=== PATIENT | female | born 1990 | race Caucasian/White ===

== ENCOUNTER 2017-06-10 12:05 | Emergency (ER) | payer BC ==
[2017-06-10 12:26] VITALS: BP 138/89; PULSE 86; TEMP 97.8; BMI 23.6
--- NOTE | 2017-06-10 12:44 | PDOC ---
History of Present Illness - General Chief Complaint: Injury Stated Complaint: RIGHT ANKLE PAIN S/P INJURY Time Seen by Provider: 06/10/17 12:26 - History of Present Illness Initial Comments: 06/10/17 12:57 26yo F hx Jed syndome p/w R ankle pain s/p rolling it inward 10 days ago over a branch. Initially ankle was swollen, mom reports giving patient ibuprofen and applying ice. Patient reports that the pain has improved but she still feels some pain when she walks. She reports she's been walking normally with no issues. Denies other injuries. Is in her usual state of good health, denies fevers, chills, chest pain, shortness of breath, abdominal pain, headaches, weakness. Past History - Past Medical History Allergies/Adverse Reactions: Allergies Allergy/AdvReac Type Severity Reaction Status Date / Time No Known Allergies Allergy Verified 10/23/12 13:14 Home Medications: Ambulatory Orders Estradiol 1 each TD ASDIR 05/28/16 Other medical history: [place] Syndrome: mild developmental disability - Psycho/Social/Smoking Cessation Hx Anxiety: No Suicidal Ideation: No Smoking Status: No Smoking History: Never smoked Number of Cigarettes Smoked Daily: 0 Hx Alcohol Use: No Drug/Substance Use Hx: No Substance Use Type: None Review of Systems - Review of Systems Comments:: 06/10/17 13:18 GENERAL/CONSTITUTIONAL: No fever or chills. No weakness. HEAD, EYES, EARS, NOSE AND THROAT: No change in vision. No ear pain or discharge. No sore throat. CARDIOVASCULAR: No chest pain or shortness of breath. RESPIRATORY: No cough, wheezing, or hemoptysis. GASTROINTESTINAL: No nausea, vomiting, diarrhea or constipation. GENITOURINARY: No dysuria, frequency, or change in urination. MUSCULOSKELETAL: +R ankle pain. No neck or back pain. SKIN: No rash NEUROLOGIC: No headache, vertigo, loss of consciousness, or change in strength/ sensation. ENDOCRINE: No increased thirst. No abnormal weight change. HEMATOLOGIC/LYMPHATIC: No anemia, easy bleeding, or history of blood clots. ALLERGIC/IMMUNOLOGIC: No hives or skin allergy. *Physical Exam - Vital Signs Last Vital Signs Temp Pulse Resp BP Pulse Ox 97.8 F 86 15 138/89 98 06/10/17 12:06 06/10/17 12:06 06/10/17 12:06 06/10/17 12:06 06/10/17 12:06 - Physical Exam Comments: 06/10/17 13:19 GENERAL: Awake, alert, and fully oriented, in no acute distress HEAD: No signs of trauma EYES: PERRLA, EOMI, sclera anicteric, conjunctiva clear ENT: Auricles normal inspection, hearing grossly normal, nares patent, oropharynx clear without exudates. Moist mucosa NECK: Normal ROM, supple, no lymphadenopathy, JVD, or masses LUNGS: Breath sounds equal, clear to auscultation bilaterally. No wheezes, and no crackles HEART: Regular rate and rhythm, normal S1 and S2, no murmurs, rubs or gallops ABDOMEN: Soft, nontender, normoactive bowel sounds. No guarding, no rebound. No masses EXTREMITIES: Normal range of motion, no edema. No pain with eversion or inversion. + mild ttp inferior to the medial malleolus. 2+ DP and TP pulses. No erythema. Full strength dorsi and plantar flexion. Normal sensation in foot. Walking in ED without antalgic gait. No clubbing or cyanosis. NEUROLOGICAL: Normal speech, cranial nerves intact, negative pronator drift, 5/ 5 strength in all 4 extremities, normal sensation to light touch in all 4 extremities, normal cerebellar exam, normal gait, normal reflexes and tone SKIN: Warm, Dry, normal turgor, no rashes or lesions noted. Medical Decision Making - Medical Decision Making 06/10/17 13:24 26-year-old female presents with right ankle pain status post everting her ankle 10 days ago. Likely ankle sprain. Since patient has been ambulating on the ankle without issue and is neurovascularly intact, we willll hold off on an x-ray which the patient and her mom are on board with. -RICE -DC *DC/Admit/Observation/Transfer Diagnosis at time of Disposition: Ankle pain Qualifiers: Chronicity: unspecified Laterality: right Qualified Code(s): M25.571 - Pain in right ankle and joints of right foot - Discharge Dispostion Disposition: HOME - Patient Instructions Printed Discharge Instructions: Ankle Sprain, DI for Ankle Pain Additional Instructions: 1) Rest and protect the injured or sore area. Stop, change, or take a break from any activity that may be causing your pain or soreness. 2) Cold will reduce pain and swelling. Apply an ice or cold pack right away to prevent or minimize swelling. Apply the ice or cold pack for 10 to 20 minutes, 3 or more times a day. After 48 to 72 hours, if swelling is gone, apply heat to the area that hurts. Do not apply ice or heat directly to the skin. Place a towel over the cold or heat pack before applying it to the skin. 3) Compression, or wrapping the injured or sore area with an elastic bandage ( such as an James wrap), will help decrease swelling. Don't wrap it too tightly, because this can cause more swelling below the affected area. Loosen the bandage if it gets too tight. Signs that the bandage is too tight include numbness, tingling, increased pain, coolness, or swelling in the area below the bandage. Talk to your doctor if you think you need to use a wrap for longer than 48 to 72 hours; a more serious problem may be present. 4) Elevate the injured or sore area on pillows while applying ice and anytime you are sitting or lying down. Try to keep the area at or above the level of your heart to help minimize swelling. Nonsteroidal anti-inflammatory drugs (NSAIDs) may also help relieve your pain and swelling. They include ibuprofen or aleve. Take these medications with food. Follow up with Dr. Pichardo (orthopedics). Call today for an appointment within 1 week. Return to the emergency department immediately for any new or concerning symptoms or if your symptoms get worse - Attestations Physician Attestion: 06/10/17 13:29 I, Dr. Kathy Huerta MD, attest that this document has been prepared under my direction and personally reviewed by me in its entirety. I further attest, that it accurately reflects all work, treatment, procedures and medical decision -making performed by me.
== END 2017-06-10 13:39 | disposition home or self-care (01) ==
LOC: FER 12:05
DX: M25.571 Pain in right ankle and joints of right foot (principal); X58.XXXA Exposure to other specified factors, initial encounter; Y93.89 Activity, other specified; Y92.9 Unspecified place or not applicable; F79 Unspecified intellectual disabilities
CPT/HCPCS: 99281-25